=== PATIENT | male | born 1995 | race Two or more races ===

== ENCOUNTER 2020-06-01 08:36 | Emergency (ER) | payer OTHER ==
[~2020-06-01] VITALS: Ht 172.7 cm; Wt 68.0 kg
[2020-06-01 08:45] VITALS: BP 119/72
== END 2020-06-01 10:44 | disposition home or self-care (01) ==
LOC: ER 08:38
DX: J02.8 Acute pharyngitis due to other specified organisms (principal)
CPT/HCPCS: 86403-TC; 87070-TC